=== PATIENT | female | born 1995 | race Two or more races ===

== ENCOUNTER 2021-09-25 08:30 | Inpatient (IN) | payer SELFPAY ==
[~2021-09-25] VITALS: Ht 147.3 cm; Wt 68.6 kg
[2021-09-25 08:45] VITALS: BP 141/80
[2021-09-25] MEDS ORDERED: IV RINGERS,LACTATED 1000ML 1,000 ML IV PRN (09:00)
[2021-09-25 09:15] LABS: BACTERIA,URINE 0 /HPF (0-FEW); RBC,URINE 0 /HPF (0-2); WBC,URINE 0 /HPF (0-4)
[2021-09-25] MEDS ORDERED: OXYTOCIN 30 UNIT/500 ML PREMIX 500 ML IV PRN ×3 (09:15→11:00)
[2021-09-25] MEDS ORDERED: BUTORPHANOL 2 MG/ML VIAL. IVP PRN ×2 (09:15)
[2021-09-25] MEDS ORDERED: TERBUTALINE 1 MG/ML VIAL. SQ PRN (09:15)
[2021-09-25] MEDS ORDERED: IV RINGERS,LACTATED 1000ML 1,000 ML IV SCH (09:15)
[2021-09-25] MEDS ORDERED: LIDOCAINE 1% PF 30 ML VIAL. INJ PRN ×2 (09:15→14:45)
[2021-09-25] MEDS ORDERED: 0.9 % SODIUM CHLORIDE 10 ML DISP.SYRIN. IV PRN ×2 (09:15→11:00)
[2021-09-25 10:25] LABS: BASO % 0 % (0-3); EOS % 0 % (0-3); HEMATOCRIT 35.8 % (36.0-47.0); HEMOGLOBIN 11.9 g/dL (12.0-15.5); LYMPH # 1.8 x10^3/uL (1.0-4.8); LYMPH % 18 % (24-48); MEAN CORPUSCULAR HEMOGLOBIN 29 pg (25-35); MEAN CORPUSCULAR HGB CONC 33 g/dL (31-37); MEAN CORPUSCULAR VOLUME 85 fL (79-100); MONO # 0.8 x10^3/uL (0.0-1.1); MONO % 8 % (0-9); NEUT # 7.1 x10^3/uL (1.8-7.7); NEUT % 73 % (31-73); PLATELET COUNT 275 x10^3/uL (140-400); RED BLOOD COUNT 4.19 x10^6/uL (3.50-5.40); RED CELL DISTRIBUTION WIDTH 14.1 % (11.5-14.5); WHITE BLOOD COUNT 9.7 x10^3/uL (4.0-11.0)
[2021-09-25] MEDS ORDERED: diphenhydrAMINE HCL 25 MG CAPSULE PO PRN (11:00)
[2021-09-25] MEDS ORDERED: PHENYLEPH/MINERAL OIL/PETROLAT RECTAL OINTMENT TUBE. RC PRN (11:00)
[2021-09-25] MEDS ORDERED: HYDROCORTISONE 1% TOPICAL OINTMENT 30GM TUBE. TP PRN (11:00)
[2021-09-25] MEDS ORDERED: MAGNESIUM HYDROXIDE 2,400 MG/30 ML ORAL.SUSP. PO PRN (11:00)
[2021-09-25] MEDS ORDERED: ACETAMINOPHEN 325 MG TABLET. PO PRN (11:00)
[2021-09-25] MEDS ORDERED: TDaP (BOOSTRIX) per PROTOCOL. MC PRN (11:00)
[2021-09-25] MEDS ORDERED: MMR per PROTOCOL. MC PRN (11:00)
[2021-09-25] MEDS ORDERED: BENZOCAINE 20% TOPICAL AEROSOL SPRAY 57GM CAN. TP PRN (11:00)
[2021-09-25] MEDS ORDERED: ZOLPIDEM 5 MG TABLET. PO PRN (11:00)
[2021-09-25] MEDS ORDERED: oxyCODONE/APAP 5/325 1 TAB TABLET PO PRN (11:00)
[2021-09-25] MEDS ORDERED: SIMETHICONE 80 MG TAB.CHEW PO PRN (11:00)
[2021-09-25] MEDS ORDERED: MAG HYDROX/ALUMINUM HYD/SIMETH 30 ML ORAL.SUSP PO PRN (11:00)
[2021-09-25] MEDS: IBUPROFEN 400 MG TABLET. PO PRN ×2 (11:53→23:06)
--- NOTE | 2021-09-25 13:22 | PDOC1 ---
SOFTWARE ENGINEER WEB APPLICATIONS H&P Date of Admission: Date of Admission: Sep 25, 2021 at 10:38 History of Present Illness: EDC: 09/23/21 LMP: 12/17/20 26y @ 40.2 by L=27 presents with ctxs. The pt received care at [facility]. When the pt arrived she was found to be 7cm. PMH: Denies PSH: Denies Meds: PNV All: NKDA OBHx: 2 x TSVD, 2 x SAB SH: no tob, no EtOH FH: noncontributory Medications: Meds: Current Medications Medications (Trade) Dose Ordered Sig/Frandy Route PRN Reason Start Time Stop Time Status Last Admin Dose Admin Ringer's Solution 1,000 ml @ 125 mls/hr Q8H IV 09/25/21 09:15 09/25/21 10:59 DC 09/25/21 10:07 Lidocaine HCl (Xylocaine 1% Pf 30ml Vial) 30 ml 1X PRN PRN INJ SEE COMMENTS 09/25/21 09:15 09/25/21 10:59 DC 09/25/21 11:10 Oxytocin 500 ml @ 0 mls/hr CONT PRN PRN IV Post delivery bleeding 09/25/21 09:15 09/25/21 10:59 DC 09/25/21 10:47 Ibuprofen (Motrin) 800 mg PRN Q8HRS PRN PO INFLAMMATION/PAIN PREVENTION 09/25/21 11:00 09/25/21 11:53 Benzocaine (Americaine) 1 spray PRN QID PRN TP TOPICAL PAIN 09/25/21 11:00 09/25/21 11:53 Allergies: Coded Allergies: No Known Drug Allergies (Unverified , 09/25/21) Physical Exam: Vital Signs: Vital Signs Date Time Temp Pulse Resp B/P (MAP) Pulse Ox O2 Delivery O2 Flow Rate FiO2 09/25/21 08:45 98.1 67 18 141/80 (100) Room Air 98.1 PE: GENERAL: No apparent distress. Alert and oriented. HEENT: Head normocephalic, atraumatic. NECK: Supple LUNGS: Clear to auscultation. HEART: RRR, S1, S2 present, pulses intact ABDOMEN: Soft, positive bowel sounds. EXTREMITIES: No cyanosis or edema. NEUROLOGIC: Normal speech, normal tone PSYCHIATRIC: Normal affect, normal mood. SKIN: No ulceration. FHT: 140s +acels/no decels/mLTV Logan: 2 min SVE: 7/C/0 Labs: Laboratory Tests Test 09/25/21 08:35 09/25/21 09:04 09/25/21 09:18 Urine Collection Type Unknown Urine Color (Auto) Light yellow Urine Turbidity Clear Urine pH (Auto) 6.0 (<5.0-8.0) Urine Specific Magna 1.015 (1.000-1.030) Urine Protein (Auto) Negative mg/dL (Negative) Urine Glucose (Auto)(UA) 100 mg/dL (Negative) Urine Ketones (Auto) Negative mg/dL (Negative) Urine Blood (Auto) Negative (Negative) Urine Nitrite Negative (Negative) Urine Bilirubin (Auto) Negative (Negative) Urine Urobilinogen (Auto) Normal mg/dL (Normal) Urine Leukocyte Esterase (Auto) Negative (Negative) Urine RBC 0 /HPF (0-2) Urine WBC 0 /HPF (0-4) Urine Squamous Epithelial Cells Occ /LPF Urine Bacteria 0 /HPF (0-FEW) White Blood Count 9.7 x10^3/uL (4.0-11.0) Red Blood Count 4.19 x10^6/uL (3.50-5.40) Hemoglobin 11.9 g/dL (12.0-15.5) L Hematocrit 35.8 % (36.0-47.0) L Mean Corpuscular Volume 85 fL (79-100) Mean Corpuscular Hemoglobin 29 pg (25-35) Mean Corpuscular Hemoglobin Concent 33 g/dL (31-37) Red Cell Distribution Width 14.1 % (11.5-14.5) Platelet Count 275 x10^3/uL (140-400) Neutrophils (%) (Auto) 73 % (31-73) Lymphocytes (%) (Auto) 18 % (24-48) L Monocytes (%) (Auto) 8 % (0-9) Eosinophils (%) (Auto) 0 % (0-3) Basophils (%) (Auto) 0 % (0-3) Neutrophils # (Auto) 7.1 x10^3/uL (1.8-7.7) Lymphocytes # (Auto) 1.8 x10^3/uL (1.0-4.8) Monocytes # (Auto) 0.8 x10^3/uL (0.0-1.1) Eosinophils # (Auto) 0.0 x10^3/uL (0.0-0.7) Basophils # (Auto) 0.0 x10^3/uL (0.0-0.2) Treponema pallidum Antibody Nonreactive (Nonreactive) SARS-CoV-2 Antigen (Rapid) Negative (NEGATIVE) Laboratory Tests 09/25/21 09:04 Laboratory Tests 09/25/21 09:04 Assessment & Plan: A/P 26y @ 40.2 by L=27 1.) [facility] Health record release sent 2.) Active labor 3.) Fetus cat I FHT 4.) GBS obtained at [facility] (awaiting records) DAISY CISNEROS MD Sep 25, 2021 13:22
--- NOTE | 2021-09-25 13:31 | PDOC4 ---
VAGINAL DELIVERY DATE DATE: 09/25/21 TIME: 13:31 TIME Patient delivered a viable male over intact perineum at 1038. Wt 3180 g. Apgars 8/9. Placenta delivered spontaneously, intact with 3VC. 2nd degree laceration repaired in typical fashion with 20 vicryl. Good hemostasis noted. 20 U of Pit given with IVF. EBL 300 cc. WEIGHT Weight [ ] DAISY CISNEROS MD Sep 25, 2021 13:31
[2021-09-25 16:00] VITALS: BP 102/56
--- NOTE | 2021-09-25 16:11 | NUR ---
Unable to transfer pt. at the 2 hour recovery colton due to unit census. Will transfer pt. when pp room is available.
[2021-09-25 20:45] VITALS: BP 112/66
[2021-09-26 00:05] VITALS: BP 118/62
[2021-09-26 07:15] VITALS: BP_SYST 106; BP_SYST 129; BP_DIAS 72; BP_DIAS 80
[2021-09-26] MEDS ORDERED: FERROUS SULFATE 325 MG TABLET. PO SCH (08:00)
[2021-09-26 08:27] LABS: HEMATOCRIT 31.4 % (36.0-47.0); HEMOGLOBIN 10.5 g/dL (12.0-15.5); RED BLOOD COUNT 3.62 x10^6/uL (3.50-5.40); RED CELL DISTRIBUTION WIDTH 14.1 % (11.5-14.5); WHITE BLOOD COUNT 9.3 x10^3/uL (4.0-11.0)
[2021-09-26] MEDS: PRENATAL MULTIVITAMIN TABLET. PO SCH (08:54)
[2021-09-26] MEDS: DOCUSATE SODIUM 100 MG CAPSULE. PO PRN (08:54)
[2021-09-26 16:00] VITALS: BP 105/66
--- NOTE | 2021-09-26 16:41 | NUR ---
1615 RN to room, VS stable no c/o pain. SL dc'd at this time, catheter intact with pressure applied to site and secured with band aid. patient asks when DC will be. Patient states she was told she could be dc'd after 1pm. Rn explains to parents about baby has not been Dc'd yet. Patient asks to speak with the baby DrAlyssa Archibald states "I will not leave without my baby". The AGRICULTURE MECHANIC was notified and will visit with parents. Addendum: 09/27/21 at 1507 by ZACKARY MOJICA RN This note was meant for a diffrent patient
--- NOTE | 2021-09-26 18:38 | PDOC ---
TUBE WRAPPER PROGRESS NOTE Date of Service: DATE: 09/26/21 TIME: 18:36 Subjective: Doing well. Pain well managed with PO meds. Tolerates activity, diet, and voiding without difficulty. Breast/bottle feeding - reports that infant latches well with audible swallows. No c/o. Objective: Objective: FF @ U, scant lochia. Breasts filling, nipples intact. Vital Signs: Vital Signs Date Time Temp Pulse Resp B/P (MAP) Pulse Ox O2 Delivery O2 Flow Rate FiO2 09/25/21 08:45 98.1 67 18 141/80 (100) Room Air 98.1 09/25/21 16:00 100 Vital Signs Date Time Temp Pulse Resp B/P (MAP) Pulse Ox O2 Delivery O2 Flow Rate FiO2 09/26/21 16:00 98.1 87 20 105/66 (79) 97 Room Air 98.1 Labs: Laboratory Tests Test 09/26/21 07:35 White Blood Count 9.3 x10^3/uL (4.0-11.0) Red Blood Count 3.62 x10^6/uL (3.50-5.40) Hemoglobin 10.5 g/dL (12.0-15.5) L Hematocrit 31.4 % (36.0-47.0) L Mean Corpuscular Volume 87 fL (79-100) Mean Corpuscular Hemoglobin 29 pg (25-35) Mean Corpuscular Hemoglobin Concent 33 g/dL (31-37) Red Cell Distribution Width 14.1 % (11.5-14.5) Platelet Count 246 x10^3/uL (140-400) Laboratory Tests 09/26/21 07:35 Laboratory Tests 09/26/21 07:35 Physical Exam: GENERAL: No apparent distress. Alert and oriented. HEENT: Head normocephalic, atraumatic. NECK: Supple LUNGS: Clear to auscultation. HEART: RRR, S1, S2 present, pulses intact ABDOMEN: Soft, positive bowel sounds. EXTREMITIES: No cyanosis or edema. NEUROLOGIC: Normal speech, normal tone PSYCHIATRIC: Normal affect, normal mood. SKIN: No ulceration. Assessment & Plan: PPD#1 routine PP care. Anticipate d/c home tomorrow. MINDY DE LA TORRE CNM Sep 26, 2021 18:38
[2021-09-26 20:08] VITALS: BP 107/68
[2021-09-27 05:00] VITALS: BP 103/64
[2021-09-27 09:00] VITALS: BP 125/76
[2021-09-27] MEDS: DOCUSATE SODIUM 100 MG CAPSULE. PO PRN (09:11)
[2021-09-27] MEDS: PRENATAL MULTIVITAMIN TABLET. PO SCH (09:11)
[2021-09-27] MEDS ORDERED: DOCU-109 PO (09:24)
[2021-09-27] MEDS ORDERED: IBUP-1060 PO (09:24)
--- NOTE | 2021-09-27 10:46 | PDOC ---
SENIOR SERVICE TECHNICIAN PROGRESS NOTE Date of Service: DATE: 09/27/21 TIME: 10:45 Subjective: Pt with good pain control. Laila PO. Voiding. Minimal lochia. Objective: Vital Signs: Vital Signs Date Time Temp Pulse Resp B/P (MAP) Pulse Ox O2 Delivery O2 Flow Rate FiO2 09/26/21 07:15 98.0 79 18 106/72 (83) 100 Room Air 98.0 Vital Signs Date Time Temp Pulse Resp B/P (MAP) Pulse Ox O2 Delivery O2 Flow Rate FiO2 09/27/21 09:00 Room Air 09/27/21 05:00 98.3 76 18 103/64 (77) 96 98.3 Physical Exam: GENERAL: No apparent distress. Alert and oriented. HEENT: Head normocephalic, atraumatic. NECK: Supple LUNGS: Clear to auscultation. HEART: RRR, S1, S2 present, pulses intact ABDOMEN: Soft, positive bowel sounds. EXTREMITIES: No cyanosis or edema. NEUROLOGIC: Normal speech, normal tone PSYCHIATRIC: Normal affect, normal mood. SKIN: No ulceration. FFNT below umb No C/C/E Assessment & Plan: A/P 26y @ 40.2 by L=27 1.) PP doing well 2.) [facility] records reviewed 3.) Rub equiv MMR given 4.) GBS results not in records (possibly never obtained) 5.) Hgb 11.9 -> 10.5 6.) D/c home DAISY CISNEROS MD Sep 27, 2021 10:46
[2021-09-27] MEDS ORDERED: MEASLES, MUMPS & RUBELLA VACC 0.5 ML VIAL. VAX SQ ONE (11:00)
[2021-09-27] MEDS: IBUPROFEN 400 MG TABLET. PO PRN (12:09)
[2021-09-27 13:30] VITALS: BP 120/73
--- NOTE | 2021-09-27 15:19 | NUR ---
1200 DC instructions given, patient voiced understanding. VS stable prior to DC. Belonging in hand. Patient accompanied by GrandMother and RN to vehicle via ambulation. Baby in car seat secured. RN places baby in carseat.
--- NOTE | 2021-09-29 11:48 | DS ---
DATE OF DISCHARGE: 09/27/2021 ADMISSION DIAGNOSES: 1. Intrauterine at 40 weeks and 2 days by last menstrual period equal to 27-week ultrasound. 2. care at [facility]. 3. Active labor. 4. Group B Streptococcus unknown. DISCHARGE DIAGNOSES: 1. Intrauterine at 40 weeks and 2 days by last menstrual period equal to 27-week ultrasound. 2. care at [facility]. 3. Active labor. 4. Group B Streptococcus unknown. 5. Rubella equivocal. PROCEDURE: Spontaneous vaginal delivery. BRIEF HOSPITAL COURSE: The patient is a 26-year-old 5, para 2-0-2-2 who presented to Labor and Delivery at 40 weeks and 2 days by LMP equal to 27-week ultrasound who presented with contractions. The patient received her care at [facility]. When she arrived, the patient was found to be 7 cm. The patient had no desire for an epidural and was artificially ruptured. The patient delivered shortly thereafter by vaginal delivery. See delivery note for full detail. By day #2, the patient was meeting all discharge criteria and subsequently discharged home. Of note, the patient's hemoglobin was 11.9 on admission and after delivery, was found to be 10.5. The patient also, after her records received, was found to be rubella equivocal and was given MMR vaccine for discharge. DISCHARGE INSTRUCTIONS: The patient was told not to lift anything greater than 20 pounds, have pelvic rest for 6 weeks. CALL IF: The patient was to call if she had fevers, chills, nausea, vomiting, abdominal pain or any additional questions or concerns. FOLLOWUP APPOINTMENT: The patient was to follow up in 6 weeks at [facility]. She was to call for that appointment. DISCHARGE MEDICATIONS: The patient was given a prescription for Motrin 800 mg, 30 pills and Colace 100 mg, 30 pills. QUYEN/VASHTI DR: Taj TID: [id number]
== END 2021-09-27 13:48 | disposition home or self-care (01) | DRG 807 ==
LOC: 3 SO LND 08:30 → OBSVTOIN 10:38 → 3 SO LND 17:00
PROVIDERS: ADMIT Obstetrics & Gynecology; ATTEND Obstetrics & Gynecology
PROC: 10E0XZZ Delivery of Products of Conception, External Approach (ICD-10-PCS; principal; 2021-09-25)
PROC: 0KQM0ZZ Repair Perineum Muscle, Open Approach (ICD-10-PCS; 2021-09-25)
PROC: 3E033VJ Introduction of Other Hormone into Peripheral Vein, Percutaneous Approach (ICD-10-PCS; 2021-09-25)
DX: O98.52 Other viral diseases complicating childbirth (principal); Z37.0 Single live birth; B06.9 Rubella without complication; O70.1 Second degree perineal laceration during delivery; Z23 Encounter for immunization; Z3A.40 40 weeks gestation of pregnancy; Z20.822 Contact with and (suspected) exposure to COVID-19
CPT/HCPCS: 36415; 81001; 85025; 85027; 86592; 86850; 86900; 86901; 87426; 90471; 90707; G0378; G0379; J2590; J3490; J7120; U0003